=== PATIENT | male | born 1995 | race Caucasian/White ===

== ENCOUNTER 2019-01-11 02:05 | Emergency (ER) | payer SELFPAY ==
[2019-01-11] MEDS ORDERED: ACETAMINOPHEN 325 MG TAB PO ONE (02:35)
--- NOTE | 2019-01-11 02:37 | ER Report ---
History and Physical Time Seen By MD: 02:25 Hx. of Stated Complaint: PT WAS DOING BACK FLIPS ON SNOW YESTERDAY, LANDED ON HIS TAILBONE. COMPLAINING OF BACK PAIN/ SPASMS HPI/ROS CHIEF COMPLAINT: Back pain HISTORY OF PRESENT ILLNESS: 23-year-old male was attempting to flex in a snowbank on January 09 at about 5 in the evening. He landed on his tailbone and then on his back. He had pain at the time in both his tailbone and back but he was able to amulet from the scene. Patient was driving in the car today and had gradually worsening pain. Pain is now severe. Patient was at home and did not have medications and came to the emergency department. He has not tried ice or medications. He has mid thoracic and right sided thoracic pain. He denies pain in the tailbone. He feels slightly short of breath though admits he is hyperventilating. He has no incontinence or lower extremity weakness. He does note he had a history of prior vertebral compression fractures in a sledding accident. He has nausea. REVIEW OF SYSTEMS: Constitutional: No fever, no chills. Eyes: No discharge. ENT: No sore throat. Cardiovascular: No chest pain, no palpitations. Respiratory: No cough, no shortness of breath. Gastrointestinal: No abdominal pain, no vomiting. Genitourinary: No hematuria. Musculoskeletal: above Skin: No rashes. Neurological: No headache. Remainder of the 14 system rev: Yes Allergies: Coded Allergies: No Known Drug Allergies (Unverified , 01/11/19) Home Meds No Active Prescriptions or Reported Meds Constitutional Vital Sign - Last 24 Hours 01/11/19 01/11/19 01/11/19 01/11/19 02:09 02:10 02:30 02:35 Temp 98.0 Pulse 67 58 Resp 18 B/P (MAP) 140/74 (96) 140/74 144/80 (101) Pulse Ox 97 100 01/11/19 01/11/19 01/11/19 03:17 03:30 03:35 Pulse 56 B/P (MAP) 120/66 (84) 118/63 (81) Pulse Ox 98 Physical Exam General Appearance: [The patient is alert, has no immediate need for airway protection and no signs of toxicity.] [ ] Eyes: Pupils equal and round no pallor or injection. ENT, Mouth: Mucous membranes are moist. Respiratory: There are no retractions, lungs are clear to auscultation. Cardiovascular: Regular rate and rhythm. no m/r/g Gastrointestinal: Abdomen is soft and non tender, no masses, bowel sounds normal. Neurological: alert, moves all ext Skin: Warm and dry, no rashes. Musculoskeletal: Neck is supple non tender. Extremities are nontender, nonswollen and have full range of motion. Pt has T8-10 ttp without stepoff that reproduces pain. He also has r thoracic ttp at base of trapezius/lats. He does not have lumbar ttp or sacral ttp. FROm extremities. DIFFERENTIAL DIAGNOSIS: After history and physical exam differential diagnosis was considered for pneumothorax, tspine fracture, rib fx, other emergent etiology. Medical Decision Making ED Course/Re-evaluation ED Course 23-year-old male presents one day after fall striking his tailbone as well as his mid back. He has only mid back tenderness on exam he has mid thoracic spine tenderness. X-ray shows a small compression fracture of indeterminate age. We'll CT to further evaluate as well as rule out other complications. Patient improved after initial meds. We'll administer morphine, ice, reassess. CT without e/o acute fx and pt improved. He is comfortable to d/c and ambulate; will start NSAID's, tylenol, ice, and understands SRp's. Decision to Disposition Date: Jan 11, 2019 Decision to Disposition Time: 04:46 Depart Departure Latest Vital Signs Vital Signs Date Time Temp Pulse Resp B/P (MAP) Pulse Ox O2 Delivery O2 Flow Rate FiO2 01/11/19 03:35 56 98 01/11/19 03:30 118/63 (81) 01/11/19 02:10 98.0 18 Impression: Primary Impression: Back pain Condition: Improved Disposition: HOME OR SELF-CARE New Scripts No Active Prescriptions or Reported Meds Patient Instructions: Thoracic Pain (ED) Additional Instructions: As we discussed, I recommend ibuprofen 600mg every 8 hours, tylenol 650mg every 6 hours and ice 20 min at a time. Please return immediately for uncontrolled pain, new weakness, numbness, incontinence, or any concerns. Problem Qualifiers Primary Impression: Back pain Back pain location: thoracic back pain Chronicity: acute Back pain laterality: right Qualified Codes: M54.6 - Pain in thoracic spine HILE,JULIA C MD Jan 11, 2019 02:37
[2019-01-11] MEDS ORDERED: ONDANSETRON 4 MG/2 ML VIAL IVP ONE (02:40)
--- NOTE | 2019-01-11 03:34 | RADIOLOGY IMAGING REPORT ---
FACILITY: [facility] - [place] PATIENT NAME: Aníbal Ferguson : 1995 MR: [id number] V: [id number] EXAM DATE: ORDERING PHYSICIAN: JULIA JUÁREZ TECHNOLOGIST: Location: [facility] Patient: Aníbal Ferguson : 1995 Visit/Account:[id number] Date of Sevice: 01/11/2019 THORACIC SPINE: Indication: Injury. Technique: Frontal and lateral images were obtained. Comparison: None available. Findings: There is a mild compression deformity in the mid thoracic spine, probably the T7 vertebral body, of indeterminant age. Additional clinical correlation is recommended. If clinically indicated, MRI may be helpful to determine whether this represents acute deformity. The visualized skeletal stru ctures are otherwise intact and unremarkable. There is normal mineralization. No paraspinal soft tiss ue abnormality is identified. IMPRESSION: Mild compression deformity of what is probably the T7 vertebral body, of indeterminate ag e, possibly acute. Report Dictated By: Clay Cuello MD at 01/11/2019 3:24 AM Report E-Signed By: Clay Cuello MD at 01/11/2019 3:30 AM [id number]
--- NOTE | 2019-01-11 03:36 | RADIOLOGY IMAGING REPORT ---
FACILITY: [facility] - [place] PATIENT NAME: Aníbal Ferguson : 1995 MR: [id number] V: [id number] EXAM DATE: ORDERING PHYSICIAN: JULIA JUÁREZ TECHNOLOGIST: Location: [facility] Patient: Aníbal Ferguson : 1995 Visit/Account:[id number] Date of Sevice: 01/11/2019 PORTABLE CHEST: Indication: Injury. Technique: A single frontal image was obtained. Comparison: None available. Skeletal and soft tissue structures: Unremarkable, as visualized. Heart and mediastinum: Within normal limits. Lung garcia: Well-expanded and clear. Pleural spaces: Unremarkable. Impression: No acute process is clearly identified. Report Dictated By: Clay Cuello MD at 01/11/2019 3:30 AM Report E-Signed By: Clay Cuello MD at 01/11/2019 3:32 AM WSN:[id number]
[2019-01-11] MEDS ORDERED: MORPHINE 4 MG/ML SDV IVP ONE (03:40)
[2019-01-11 04:30] VITALS: BP 120/64
--- NOTE | 2019-01-11 04:42 | RADIOLOGY IMAGING REPORT ---
FACILITY: [facility] PATIENT NAME: Aníbal Ferguson : 1995 MR: [id number] V: [id number] EXAM DATE: [id number] ORDERING PHYSICIAN: JULIA JUÁREZ TECHNOLOGIST: Location: [facility] [place] Patient: Aníbal Ferguson : 1995 Visit/Account:[id number] Date of Sevice: 01/11/2019 CT of the thoracic spine without contrast: Indication: Acute injury. Technique: Helical CT was performed through the thoracic spine without contrast. Axial, coronal, and sagittal reconstructions are reviewed. One of the following dose optimization techniques was utilized in the performance of this exam: Autom ated exposure control; adjustment of the mA and/or kV according to the patient's size; or use of an i terative reconstruction technique. Specific details can be referenced in the facility's radiology CT exam operational policy. Comparison: Plain radiographs from earlier the same day. Findings: There is no definite evidence of fracture, compression, subluxation, or other acute deformi ty. There is uniform mineralization. The skeletal structures are otherwise unremarkable. No paraspina l soft tissue abnormality is identified. IMPRESSION: No definite evidence of fracture or paraspinal soft tissue abnormality. Report Dictated By: Clay Cuello MD at 01/11/2019 4:26 AM Report E-Signed By: Clay Cuello MD at 01/11/2019 4:37 AM WSN:[id number]
[2019-01-11] MEDS ORDERED: CYCLOBENZAPRINE HCL 10 MG TAB PO ONE (04:50)
[2019-01-11] MEDS ORDERED: ACET/HYDROC 5/325MG TH ER ONLY 2 TAB/BOTTLE PO ONE (04:50)
[2019-01-11] MEDS ORDERED: APAP/HYDROCODONE 325/5 TAB PO ONE (04:50)
== END 2019-01-11 05:00 | disposition home or self-care (01) ==
LOC: ER 02:45
DX: M54.6 Pain in thoracic spine (principal)
CPT/HCPCS: 71045; 72070; 72128; 96374; 96375; 99284; J2270; J2405